=== PATIENT | female | born 1945 | race Hispanic/Latino ===

== ENCOUNTER 2021-04-18 10:05 | Emergency (ER) | payer MEDICARE, OTHER ==
[~2021-04-18 10:05] MED LIST: EPINEPHrine 1 MG/10 ML SYRINGE ONE; LIDOCAINE PF 100 MG/5 ML (CARDIAC SYRINGE) IV ONE
--- NOTE | 2021-04-18 10:56 | Emergency Department Report ---
HPI - General Time Seen by Provider: 04/18/21 10:16 - HPI HPI: 75-year-old female presents to the emergency department via EMS in cardiac arrest. The patient's daughter went to check on her earlier today and found her to be altered. The daughter called 911 and she says that in the interim, prior to their arrival, the patient started having some respiratory distress. When EMS arrived the patient was found to not have a pulse and ACLS was initiated. The patient received an IO and they began chest compressions using the Yonny machine. EMS had difficulty intubating the patient secondary to some vomiting and/or regurgitation of secretions. She received 5 rounds of epinephrine and arrived to our emergency department pulseless and in asystole. EMS says the patient was in asystole during her entire EMS course. She has a history of COPD and hypertension. The patient's daughter says that she has been "sick" for the past week with some upper respiratory type symptoms. The patient is not vaccinated against COVID-19. ED Review of Systems ROS: Stated complaint: CARDIAC ARREST Other details as noted in HPI Comment: Unobtainable due to pts medical conditions Physical Exam - Physical Exam Physical Exam: GENERAL: Patient is ill-appearing and unresponsive. HENT: Normocephalic. Atraumatic. EYES: Pupils are fixed and dilated. NECK: Supple. Trachea appears midline. CHEST/LUNGS: There are no spontaneous respirations. HEART/CARDIOVASCULAR: There are no spontaneous heart sounds. ABDOMEN: Abdomen is soft. There is no abdominal distention. SKIN: Skin is cool but dry. NEURO: Unresponsive. Does not withdraw to painful stimuli. Does not follow any commands. MUSCULOSKELETAL: There is no obvious deformity. There is no evidence of acute injury. No palpable femoral or radial pulses. - Intubation Time Out Performed: No Laryngoscope: other (Glidescope) Size: 3 ET Tube Size: 7.5 Tube Secured Depth (cm): 24 Tube Secured Location: lips Tube Placement Confirmation: visualized tube passing t Intubation Complications: none ED Medical Decision Making - Medical Decision Making This patient presented to the emergency department in cardiac arrest. She had already been pulseless and in asystole for about 30 minutes prior to arrival. The patient appears to have some lividity. She was receiving chest compressions by the Yonny compression machine and had an IO placed. An Accu-Chek was done that came back at about 200. We continued ACLS protocol immediately upon arrival. I intubated the patient as per the procedure section and she began receiving bag valve ventilation through the endotracheal tube. We did another 2 rounds of ACLS protocol in which the patient was seen to be in pulseless electrical activity. Round 1 the patient was given both epinephrine and sodium bicarbonate. Brought to the patient was given epinephrine. Overall the patient has been pulseless and apneic for close to 40 minutes. The pupils are fixed and dilated, there are no spontaneous heart or breath sounds, time of was called at 10:14 AM. The patient's daughter was notified of the patient's expiration and was given an opportunity to see the patient prior to transport to the [facility] [place]. Critical care attestation.: If time is entered above; I have spent that time in minutes in the direct care of this critically ill patient, excluding procedure time. ED Disposition Clinical Impression: Cardiac arrest Acute respiratory failure Qualifiers: Respiratory failure complication: unspecified whether with hypoxia or hypercapnia Qualified Code(s): J96.00 - Acute respiratory failure, unspecified whether with hypoxia or hypercapnia Disposition: 20 Is pt being admited?: No
== END 2021-04-18 11:00 ==
LOC: EDBD → ED 10:05
DX: I46.9 Cardiac arrest, cause unspecified (principal); J96.00 Acute respiratory failure, unspecified whether with hypoxia or hypercapnia
CPT/HCPCS: 31500; 92950; 99285; J0171; J2001